=== PATIENT | female | born 1995 | race Caucasian/White ===

== ENCOUNTER 2022-12-30 10:47 | Outpatient (CLI) | payer OTHER, SELFPAY ==
[2022-12-30 11:12] LABS: Hemoglobin 13.1 g/dL (12.0-15.0)
== END 2022-12-30 10:48 | disposition home or self-care (01) ==
LOC: ANHLAB 10:49
PROVIDERS: Visit Provider Obstetrics & Gynecology
DX: Z01.818 Encounter for other preprocedural examination (principal)
CPT/HCPCS: 36415; 85014; 85018

== ENCOUNTER 2023-01-02 08:00 | Outpatient (NON) | payer OTHER, SELFPAY | END 2023-01-02 08:01 | disposition home or self-care (01) | LOC: ANHLAB 01-03 08:09 | PROVIDERS: Visit Provider Obstetrics & Gynecology | DX: N93.9 Abnormal uterine and vaginal bleeding, unspecified (principal) | CPT/HCPCS: 88305 ==

== ENCOUNTER 2023-01-02 09:27 | Day surgery (SDC) | payer OTHER, SELFPAY ==
[2022-12-20 12:45] VITALS: BMI 22.3
--- NOTE | 2022-12-31 07:54 | PM.IMHP ---
H&P: HPI History of Present Illness Date/Time: 12/31/22 07:54 Chief Complaint: Vaginal bleeding Narrative: A 27-year-old female admitted for hysteroscopy dilatation curettage secondary to irregular bleeding. Risks and benefits reviewed in detail. She received the [employer] handout entitled hysteroscopy as well as dilatation and curettage. She had all questions answered. She asked to proceed PMF Social History Social History Smoking status: Never smoker Second hand tobacco smoke exposure: No Alcohol intake: never Substance use: never Substance use type: does not use Spiritual care concerns: No Meds Home Medications and Allergies Home Medications Medication Instructions Recorded Confirmed Type norgestimate 0.25 mg-ethinyl 1 tablet PO DAILY 12/20/22 12/20/22 History estradiol 35 mcg tablet (Sprintec (28)) valacyclovir 500 mg tablet 500 mg PO DAILY 12/20/22 12/20/22 History Allergies Allergy/AdvReac Type Severity Reaction Status Date / Time No Known Allergies Allergy Verified 12/20/22 12:25 Exam Const: General: cooperative, healthy appearing, comfortable and well groomed Nutritional Appearance: average body habitus Orientation/consciousness: oriented to person, oriented to place and oriented to time HENMT: Head: normal to inspection Resp: Effort & Inspection: normal respiratory effort Cardio: Rate: regular rate Rhythm: regular rhythm Heart sounds: S1 normal heart sound present and S2 normal heart sound present GI: Inspection: normal to inspection : External Female Exam: normal external appearance Speculum Exam - Vagina: normal appearance of the vagina Bimanual exam- vagina & uterus: uterine size normal Bimanual Exam- Adnexa, other: normal adnexae Assessment and Plan Assessment and plan (1) Vaginal bleeding: Code(s): N93.9 - Abnormal uterine and vaginal bleeding, unspecified Status: Acute Plan Hysteroscopy/dilatation curettage
--- NOTE | 2023-01-02 06:52 | WPDHPUPDATE1 ---
History and Physical Update Update Date/Time: 01/02/23 06:52 History and Physical has been reviewed, including an updated exam of the patient. There are NO changes in the patient's condition. Risks, benefits, and alternatives have been discussed and questions answered. Patient agrees to proceed with procedure.
--- NOTE | 2023-01-02 09:26 | WPDANESEPP ---
Anes - Eval Pre Procedure Procedure: Operation Date: 01/02/23 11:00 Proposed Procedures p Hysteroscopy with Dilation and Curettage - Luis Alcala MD Date/Time: 01/02/23 09:26 Surgeon: Marie Alcala Preop Diagnosis: Abnormal Uterine Bleeding Pre Op Diagnosis: Menorrhagia Patient Data Age: 27 Gender: F Height: 1.63 m Weight: 59 kg Allergies Allergy/AdvReac Type Severity Reaction Status Date / Time No Known Allergies Allergy Verified 12/20/22 12:25 Home Medications Medication Instructions Recorded Confirmed Type norgestimate 0.25 mg-ethinyl 1 tablet PO DAILY 12/20/22 12/20/22 History estradiol 35 mcg tablet (Sprintec (28)) valacyclovir 500 mg tablet 500 mg PO DAILY 12/20/22 12/20/22 History hydrocodone 5 mg-acetaminophen 325 1 tablet PO Q4H PRN pain #14 tabs 01/02/23 Rx mg tablet Patient hx anesthesia problems: none Family hx anesthesia problems: none Results Review: All pre-operative results and documents have been reviewed as part of the pre-operative evaluation. [facility] Social History Social History Smoking status: Never smoker Second hand tobacco smoke exposure: No Alcohol intake: never Substance use: never Substance use type: does not use Spiritual care concerns: No Exam Day of Procedure 01/02/23 09:26 Patient weight: normal
[2023-01-02] MEDS: ACETAMINOPHEN 500 MG TABLET 1000 MG PO (09:46)
[2023-01-02 09:59] VITALS: BP 110/79; PULSE 82; RESP 20; TEMP 36.6; O2SAT 100
--- NOTE | 2023-01-02 10:23 | P.PNAN_ITS ---
Anes - Eval Final PreProcedure Day of Procedure 01/02/23 10:23 Patient weight: normal Heart: regular rate and rhythm Lungs: clear to auscultation Airway: Mallampati scale class 1 Neurological: alert and oriented Last oral intake: >/= 8 hours ASA classification: I Emergent: no Anesthetic plan: proceed Anesthesia type and monitoring: general GIVS and standard monitoring Results Review: All pre-operative results and documents have been reviewed as part of the pre- operative evaluation. Informed Consent: The patient's anesthetic plan and its attendant risks and benefits were discussed with the patient/family/POA. Questions were solicited and answers provided to the satisfaction of the patient/family/POA.
[2023-01-02] MEDS: SCOPOLAMINE 1.5 MG PATCH TRANSDERM (10:28)
[2023-01-02] MEDS: LACTATED RINGERS 1,000 ML 30 ML IV CONT (10:31)
--- NOTE | 2023-01-02 11:39 | P.OP_ITS ---
Procedure Note - Detailed Date of Procedure 01/02/23 Pre-op Diagnosis Menorrhagia Post-op Diagnosis Other (Uterine polyp) Procedure Performed hysteroscopy/ dilatation curettage/ polypectomy Surgeon Luis Alcala MD Anesthesia MAC and Local Indications 27-year-old female with irregular heavy bleeding refractory to medical therapy Findings uterus sounded to7.5cm. Small uterine polyp was noted. Normal-appearing fallopian tube ostia bilaterally Description of Procedure patient was prepped draped in the normal sterile fashion placed in the dorsal lithotomy position. Under excellent IV sedation weighted speculum placed posterior fornix vagina. Anterior cervix grasped with single-tooth tenaculum. 2.5cc 1% xylocaine anesthesia placed at 2, 4, 8, 10:00 a.m. of the cervix. Uterus sounded to7.5cm. Serial dilatation with fragmented dilators performed, followed by passage of the 5mm visualizing hysteroscope using normal saline as visualizing medium. A small uterine polyp was seen in photo documentation undertaken this was grasped with a polyp forceps and removed without difficulty. The uterus was then scraped over the entire 360? until a good grating sound was heard. When this was finished and further procedure could be done. The instruments removed. All were accounted for she went 2g satisfactory condition. Sponge, needle instrument counts were correct. There were no immediate com plications Estimated Blood Loss 5 Drains No Packing No Pathology Yes Complications No immediate complications Condition Stable Disposition PACU
[2023-01-02 11:41] VITALS: BP 124/79; PULSE 102; RESP 14; O2SAT 100
--- NOTE | 2023-01-02 11:45 | SUR.OPER ---
procedure I/O- 50ml in, 50ml out
[2023-01-02] MEDS: LIDOCAINE HCL 1% LOCAL INJ 20 ML VIAL 10 ML INFILTRATE (11:47)
[2023-01-02 12:00] VITALS: BP 100/74; PULSE 87; RESP 16; O2SAT 100
--- NOTE | 2023-01-02 12:04 | WPDANESPN ---
Anes - Prog Note Post-Op Date/Time: 01/02/23 12:04 Cardiovascular status: normal Respiratory status: normal Airway patency: baseline Mental status: baseline Post-Op hydration status: normal Vital Signs: Last Vital Signs Temp 36.6 C 01/02/23 09:59 Pulse 82 01/02/23 09:59 Resp 20 01/02/23 09:59 BP 110/79 01/02/23 09:59 Pulse Ox 100 01/02/23 09:59 O2 Del Method Room Air 01/02/23 09:59 Pain Score (VAS): 0/10 Patient Feedback: Patient satisfied with anesthetic care.
[2023-01-02 12:16] VITALS: BP 115/82; PULSE 75; RESP 18; O2SAT 100
== END 2023-01-02 12:25 | disposition home or self-care (01) ==
PROVIDERS: Visit Provider Obstetrics & Gynecology
PROC: 0U5B8ZZ Destruction of Endometrium, Via Natural or Artificial Opening Endoscopic (ICD-10-PCS; CPT 58563; principal; 2023-01-02 11:00)
DX: N93.9 Abnormal uterine and vaginal bleeding, unspecified (principal)
CPT/HCPCS: 58558